=== PATIENT | female | born 1985 | race Caucasian/White ===

== ENCOUNTER 2016-05-30 16:18 | Emergency (ER) | payer OTHER ==
[~2016-05-30] VITALS: Ht 167.6 cm; Wt 100.0 kg
[~2016-05-30 16:18] MED LIST: BENZ100 PO
[2016-05-30 16:33] VITALS: BP 116/78; PULSE 86; RESP 16; TEMP 98.3; O2SAT 100
--- NOTE | 2016-05-30 16:50 | PD ---
HPI Chief Complaint: ENT Complaint Time Seen by Provider: 16:48 Travel History International Travel<30 days: No Contact w/Intl Traveler<30days: No Traveled to known affect area: No History of Present Illness HPI 31-year-old female presents to the emergency department for evaluation of sore throat for 3 days. She states he also feels like her throat is swollen as well. Patient denies any difficulty swallowing, but states it is painful to swallow. She had chills last night and really she ran a fever. Patient states she was in a crowd over the weekend typically she may have caught something. She has no chronic medical problems and takes no prescribed medications. She denies any chance of . No chest pain or shortness of breath. No cough. No abdominal pain. No vomiting. PFSH Past Medical History Anemia: Yes Asthma: Yes (RAD as child) Cancer: No Cardiovascular Problems: No Diabetes: Yes Genitourinary: No Immune Disorder: No Musculoskeletal: No Neurologic: No Psychiatric: No Reproductive: Yes (PCOS) Respiratory: Yes Thyroid Disease: No Tetanus Vaccination: Unknown Influenza Vaccination: Yes ?: Not LMP: 05/28/16 Ovarian Cysts: Yes Past Surgical History Abdominal Surgery: Yes (Gastric bypass) Cardiac Surgery: No Ear Surgery: No Endocrine Surgery: No Eye Surgery: No Genitourinary Surgery: No Gynecologic Surgery: Yes (Ovarian cyst removal ) Oral Surgery: No Pacemaker: No Thoracic Surgery: No Other Surgery: Yes Social History Alcohol Use: Yes (Socially) Tobacco Use: No Substance Use: No Allergies-Medications (Allergen,Severity, Reaction): Coded Allergies: Roxicet (Verified Allergy, Severe, Itching, 05/30/16) Reported Meds & Prescriptions Reported Meds & Active Scripts Active No Active Prescriptions or Reported Medications Review of Systems Except as stated in HPI: all other systems reviewed are Neg Physical Exam Narrative GENERAL: Well-developed well-nourished female patient, Ambulatory. Afebrile. SKIN: Warm and dry. HEAD: Normocephalic. Atraumatic. ENT: Mucosa pink and moist. Bilateral tonsils are erythematous without exudates. No uvular edema. No uvular, palatal, or tonsillar deviation. Airway patent. Nasal turbinates appear normal without nasal blood, purulent drainage or septal hematoma. Bilateral tympanic membranes are clear without erythema or perforation. EYES: No scleral icterus. No injection or drainage. NECK: Supple, trachea midline. No JVD or lymphadenopathy. CARDIOVASCULAR: Regular rate and rhythm without murmurs, gallops, or rubs. RESPIRATORY: Breath sounds equal bilaterally. No accessory muscle use. Lungs sounds are clear to auscultation. GASTROINTESTINAL: Abdomen soft, non-tender, nondistended. MUSCULOSKELETAL: No cyanosis, or edema. Data Data Last Documented VS Vital Signs Date Time Temp Pulse Resp B/P Pulse Ox O2 Delivery O2 Flow Rate FiO2 05/30/16 16:40 14 05/30/16 16:33 98.3 86 116/78 100 Orders Group A Rapid Strep Screen (05/30/16 16:47) Influenzae A/B Antigen (05/30/16 16:47) Prednisone (Deltasone) (05/30/16 17:00) Strep Culture (Group A) (05/30/16 16:50) MDM Medical Decision Making Medical Screen Exam Complete: Yes Emergency Medical Condition: Yes Medical Record Reviewed: Yes Differential Diagnosis Strep pharyngitis versus viral pharyngitis versus influenza Narrative Course 31-year-old female presents to the emergency department for evaluation of sore throat, chills for 2 days. Strep swab and influenza are ordered and pending. Strep is negative. Influenza is negative. Patient is reassured with results. She declines prescription of prednisone at this time stating she does not feel it is necessary. Patient is instructed to do warm water gargles, take Tylenol/ ibuprofen [id number]. She is to follow-up with her primary care physician or return for any acute worsening of symptoms. Diagnosis Primary Impression: Viral URI Referrals: Primary Care Physician call for appointment Patient Instructions: General Instructions, Upper Respiratory Infection (ED) Additional Instructions: Rest. Drink plenty of fluids. Tylenol/ibuprofen [id number] as needed. Warm salt water gargles. Follow-up with your primary care physician. Return to the emergency department for any acute worsening of symptoms. Med/Other Pt SpecificInfo: No Change to Meds Scripts No Active Prescriptions or Reported Meds Disposition: 01 DISCHARGE HOME Condition: Stable Ella Reis HUDSON May 30, 2016 16:50
[2016-05-30] MEDS ORDERED: predniSONE 20 MG TAB PO ONE (17:00)
== END 2016-05-30 17:49 | disposition home or self-care (01) ==
LOC: PHEFT 16:18
DX: J06.9 Acute upper respiratory infection, unspecified (principal); E11.9 Type 2 diabetes mellitus without complications; D64.9 Anemia, unspecified
CPT/HCPCS: 87081; 87804; 87880; 99283; J7512